=== PATIENT | male | born 1980 | race Caucasian/White ===

== ENCOUNTER 2018-07-30 04:35 | Emergency (ER) | payer SELFPAY ==
[~2018-07-30] VITALS: Ht 198.1 cm; Wt 81.6 kg
[2018-07-30 04:38] VITALS: BP_SYST 137
[2018-07-30 05:30] VITALS: BP_SYST 111
== END 2018-07-30 06:37 | disposition home or self-care (01) ==
LOC: SED 04:35
DX: F12.180 Cannabis abuse with cannabis-induced anxiety disorder (principal); R03.0 Elevated blood-pressure reading, without diagnosis of hypertension; F17.210 Nicotine dependence, cigarettes, uncomplicated
CPT/HCPCS: 99283